=== PATIENT | female | born 2000 | race Two or more races ===

== ENCOUNTER 2024-06-16 10:00 | Emergency (ER) | payer OTHER ==
[~2024-06-16] VITALS: Ht 167.6 cm; Wt 78.5 kg
[~2024-06-16 10:00] MED LIST: ALBUTEROL0.63 MG/3 IH; AMOXICILLI250 MG/51 PO; BRONCOTRON-D L118 ML PO; DURICEF250 MG/5 M; PRELONE15 MG/5 ML; TUSSI PRES-B L120 M1
== END 2024-06-16 12:45 | disposition home or self-care (01) ==
LOC: ER 10:02 → EMR PED 10:34 → ER 12:45
DX: J06.9 Acute upper respiratory infection, unspecified (principal); Z20.822 Contact with and (suspected) exposure to COVID-19; Z87.09 Personal history of other diseases of the respiratory system; Z88.6 Allergy status to analgesic agent; Z91.013 Allergy to seafood